=== PATIENT | male | born 1985 | race Asian ===

== ENCOUNTER 2019-12-21 09:27 | Emergency (ER) | payer OTHER ==
[~2019-12-21] VITALS: Ht 172.7 cm; Wt 68.0 kg
[2019-12-21 09:30] VITALS: BP 121/74
[2019-12-21] MEDS ORDERED: PREDNISONE 20 M20 M1 PO (10:18)
== END 2019-12-21 10:37 | disposition home or self-care (01) ==
LOC: ER 09:27
DX: R51.9 Headache, unspecified (principal); H92.01 Otalgia, right ear